=== PATIENT | female | born 1965 | race Caucasian/White ===

== ENCOUNTER 2016-10-16 11:55 | Emergency (ER) | payer OTHER ==
[2016-10-16] MEDS ORDERED: ASPIRIN PO ONE (12:20)
--- NOTE | 2016-10-16 12:26 | ED EKG INTERP ---
EKG Interpretation - EKG Time of EKG reading by physician:: 12:09 EKG Read and Signed by:: Louis Mejia EKG Interpretation (*Must complete 3 of following elements*): Abnormal Rate: 97 Rhythm: Normal Sinus Rhythm [place]: normal QRS: other (low voltage) Attestation - Scribe Verification/Attestation Scribe:: Timoteo South Acting as Scribe for:: Louis Mejia Scribe documention review:: This chart was documented by a scribe and accurately reflects the service the provider performed and the decisions made by the provider.
--- NOTE | 2016-10-16 12:33 | PROVIDER DOCUMENTATION ---
HPI-General Adult - General Chief Complaint: Chest Pain Stated Complaint: Chest Tightness Time Seen by Provider: 10/16/16 12:19 Source: patient Allergies/Adverse Reactions: Patient Allergies Allergy/AdvReac Type Severity Reaction Status Date / Time Sulfa (Sulfonamide Allergy Unknown Verified 10/16/16 12:00 Antibiotics) [Sulfa(Sulfonamide Antibiotics)] Home Medications: Albuterol Sulfate [Proair Hfa] 8.5 gm IH DIRECTED 12/26/13 Insulin Aspart [Novolog] 5 unit SQ DIRECTED 12/26/13 Pregabalin [Lyrica] 100 mg PO TID 07/24/14 Dexlansoprazole [Dexilant] 30 mg PO DAILY 03/10/15 Budesonide/Formoterol Inhaler [Symbicort 80/4.5 Microgm Inhaler] 1 puff INH DAILY 10/16/16 Duloxetine [Cymbalta] 30 mg PO DAILY 10/16/16 Estrogens, Conjugated [Premarin] 0.625 mg PO DAILY 10/16/16 - History of Present Illness -Gen Adult Nature of Presenting Problems: Pt. is 51 yof that presents with c/o CP with SOB and dizziness after she was in rehab today for a shoulder surgery. Pt. reports her chest began to tighten and she denies any N/V or diaphoresis. Pt. reports no other symptoms at this time. Location of Pain/Injury: reports: chest. denies: head, face, mouth, neck, upper extremity, hand(s), abdomen, back, pelvis, genitalia, lower extremity, feet, upper body, lower body, generalized Pain Radiation: reports: no radiation Quality of Pain: reports: tightness. denies: aching, burning, cramping, dull, fullness, indigestion, pressure, sharp, stabbing, tearing, throbbing Severity: reports: moderate. denies: mild, severe Onset/Duration: reports: abrupt, this morning Timing: reports: still present. denies: improving, gone now, resolved prior to arrival, intermittent, constant, changing over time, getting worse Context/Activities at Onset: reports: light activity, recent physical stress. denies: recent emotional stress, recent trauma history, possible bad food, cold exposure, out of country travel Modifying Factors: improves with: nothing Associated Symptoms: reports: chest pain, dizziness, shortness of breath. denies: anxiety, arm pain, back/neck pain, constipation, cough, diaphoresis, diarrhea, EENT symptoms, fatigue, fever/chills, genitourinary problems, headaches, heartburn, joint pain, loss of appetite, malaise, muscle aches, sinus congestion/drainage, nausea, rash, seizure, sensory/motor loss, pain with inspiration, swelling/mass in abdomen, syncope, vomiting, weakness, trouble walking Similar Symptoms Previously?: No Recently seen or treated by another doctor?: No Review of Systems - Adult - REVIEW OF SYSTEMS - ADULT Constitutional: reports: see HPI. denies: chills, fever, [place]ique Eyes: reports: see HPI. denies: discharge, blurred vision, double vision, eye pain Ears, Nose, Mouth & Throat: reports: see HPI. denies: ear discharge, ear pain, nose pain, loose teeth, mouth/dental pain, throat swelling Cardiovascular: reports: see HPI, chest pain. denies: irregular heart rate, palpitations, syncope Respiratory: reports: see HPI, shortness of breath. denies: chronic cough, cough, dyspnea on exertion Gastrointestinal: reports: see HPI. denies: abdominal pain, diarrhea, nausea, vomiting Genitourinary: reports: see HPI. denies: dysuria, hematuria, hesitency, urgency Musculoskeletal: reports: see HPI. denies: bone pain, back pain, joint pain, muscle aches, neck pain Integumentary: reports: see HPI. denies: hives, itching, rash, skin thickening Neurological: reports: see HPI, dizziness/vertigo. denies: headache/migraines, numbness, seizure, tremors Psychiatric: reports: see HPI. denies: anxiety, depression, emotional problems , insomnia, panic attacks, suicidal thoughts Past History - Adult - PAST MEDICAL HISTORY-ADULT Review of Records: reports: Old Records Reviewed, Nursing Assessment Review, Medications Reviewed, Social history reviewed & non-contributory. Respiratory: reports: COPD Musculoskeletal: reports: chronic pain, other (fibromyalgia) Endocrine/Immune: reports: Diabetes - PRIOR SURGERIES/PROCEDURES Surgical/Procedure History: reports: reviewed, not pertinent, orthopedic ( extremity) - IMMUNIZATION STATUS Childhood Immunizations: UTD Flu Vaccine: See Nurse Assessment Physical Exam-General - PHYSICAL EXAM-ADULT Initial Vital Signs Reviewed: Yes - CONSTITUTIONAL General Appearance: alert, mild distress, anxious. negative: lethargic, slow to respond, obtunded, combative - EYES Eyes: PERRL/EOMI, pink conjunctivae. negative: conjuctival exudate, photophobia , subconjunctival hemorrhage - HEAD, EARS, NOSE, MOUTH & THROAT HENMT: normocephalic/atraumatic, moist mucous membranes. negative: angioedema, frontal tenderness, maxillary tenderness - NECK Neck: non-tender, full range of motion, supple, normal inspection. negative: lymphadenopathy, trachial deviation, thyromegaly - RESPIRATORY Respiratory: lungs clear, normal breath sounds. negative: crackles, rales, rhonchi, stridor, wheezing - CARDIOVASCULAR Cardiovascular: normal peripheral pulses, regular rate, rhythm, no JVD, no murmur. negative: extra beats, friction rub, irregularly irregular - CHEST (BREASTS) Chest/Breast: deferred - GASTROINTESTINAL (ABDOMEN) Abdominal Exam: normal bowel sounds, non tender, soft. negative: distended, guarding, rigid, rebound, tenderness, hernia, mass - GENITOURINARY Female Genitalia/Pelvic Exam: deferred Rectal Exam: deferred Hemoccult Exam: deferred - LYMPHATIC Lymphatic: no adenopathy. negative: axilla node tender, cervical node tenderness - MUSCULOSKELETAL Back Exam: normal inspection, no CVA tenderness, no vertebral tenderness. negative: ecchymosis, muscle spasm, vertebral tenderness Extremity: normal range of motion, non-tender, normal gait, normal inspection. negative: deformity, erythema, inflammation, swelling, tenderness Peripheral Pulses: radial (R): 2+, radial (L): 2+ - SKIN Integumentary: normal color, normal turgor, warm/dry. negative: cyanosis, diaphoresis, ecchymosis, erythema, jaundice, mottled, pallor, petechiae, purpura , rash, swelling, tenderness - NEUROLOGIC Neurologic: grossly normal, no motor/sensory deficits. negative: aphasia, facial droop, focal weakness, motor weakness, sensory deficit - PSYCHIATRIC Psych/Mental Status: normal mood/affect, normal thought content, normal thought process, oriented x 3, anxious. negative: paranoid, tearful Progress - PLAN OF CARE/RESULTS Progress/Plan/Lab Results: Discussed results and plan of care with patient. Patient agrees with plan and verbalizes understanding. Vital Signs Temp Pulse Pulse Pulse Pulse Resp BP 10/16/16 14:58 99 H 93 H 103 H 10/16/16 14:28 98.0 F 98 H 14 110/49 10/16/16 13:15 108 H 102 H 88 10/16/16 11:55 106 H 18 114/57 BP BP BP Pulse Ox 10/16/16 14:58 124/63 134/60 147/99 10/16/16 14:28 100 10/16/16 13:15 117/59 91/55 119/63 10/16/16 11:55 98 Sulfa (Sulfonamide Antibiotics) [Sulfa(Sulfonamide Antibiotics)] Allergy ( Verified 10/16/16 12:00) Unknown Albuterol Sulfate [Proair Hfa] 8.5 gm IH DIRECTED 12/26/13 Insulin Aspart [Novolog] 5 unit SQ DIRECTED 12/26/13 Pregabalin [Lyrica] 100 mg PO TID 07/24/14 Dexlansoprazole [Dexilant] 30 mg PO DAILY 03/10/15 Meloxicam [Mobic] 15 mg PO DAILY #30 tablet 03/11/15 Budesonide/Formoterol Inhaler [Symbicort 80/4.5 Microgm Inhaler] 1 puff INH DAILY 10/16/16 Duloxetine [Cymbalta] 30 mg PO DAILY 10/16/16 Estrogens, Conjugated [Premarin] 0.625 mg PO DAILY 10/16/16 Laboratory 10/16/16 10/16/16 10/16/16 13:05 13:05 13:05 WBC 4.94 RBC 4.41 Hgb 12.2 Hct 35.8 L MCV 81.2 MCH 27.7 MCHC 34.1 RDW Std Deviation 11.8 Plt Count 283 MPV 9.1 Immature Gran % (Auto) 0.2 Neut % (Auto) 48.6 Lymph % (Auto) 35.4 [place] % (Auto) 7.1 Eos % (Auto) 7.9 Baso % (Auto) 0.8 Immature Gran # (Auto) 0.01 Neut # (Auto) 2.40 Lymph # (Auto) 1.75 [place] # (Auto) 0.35 Eos # (Auto) 0.39 Baso # (Auto) 0.04 PT 12.7 INR 0.92 APTT (Factor Assay) 30.5 Sodium Potassium Chloride Carbon Dioxide Anion Gap BUN Creatinine Estimated GFR/1.73 m2 BUN/Creatinine Ratio Glucose POC Glucose Calculated Osmolality Calcium Total Bilirubin AST ALT Alkaline Phosphatase Creatine Kinase Troponin T < 0.010 Total Protein Albumin Globulin Albumin/Globulin Ratio 10/16/16 10/16/16 13:05 12:30 WBC RBC Hgb Hct MCV MCH MCHC RDW Std Deviation Plt Count MPV Immature Gran % (Auto) Neut % (Auto) Lymph % (Auto) [place] % (Auto) Eos % (Auto) Baso % (Auto) Immature Gran # (Auto) Neut # (Auto) Lymph # (Auto) [place] # (Auto) Eos # (Auto) Baso # (Auto) PT INR APTT (Factor Assay) Sodium 133 L Potassium 4.1 Chloride 97 L Carbon Dioxide 26 Anion Gap 10 BUN 25 H Creatinine 0.8 Estimated GFR/1.73 m2 > 60 BUN/Creatinine Ratio 31 Glucose 212 H POC Glucose 196 H Calculated Osmolality 277 Calcium 9.6 Total Bilirubin 0.30 AST 22 ALT 18 Alkaline Phosphatase 155 H Creatine Kinase 52 Troponin T Total Protein 6.6 Albumin 4.3 Globulin 2.0 Albumin/Globulin Ratio 2.0 Orders Category Date Time Status FSBS [Finger Stick Blood Sugar (ED)] DIRECTED Care 10/16/16 12:20 Active Orthostatic Vital Signs NOW Care 10/16/16 12:20 Active Orthostatic Vital Signs NOW Care 10/16/16 14:56 Active Saline Loc NOW Care 10/16/16 12:19 Active CHEST-2 VIEWS [RAD] ONCE Exams 10/16/16 12:20 Draft CBC WITH ELECTRONIC DIFF [HEME] Stat Lab 10/16/16 13:05 Completed CK PROFILE [SP CHEM] Stat Lab 10/16/16 13:05 Completed COMPREHENSIVE METABOLIC PANEL [CHEM] Stat Lab 10/16/16 13:05 Com[address]IME WITH INR PL [COAG] Routine Lab 10/16/16 13:[address] [COAG] Routine Lab 10/16/16 13:05 Completed TROPONIN T Stat Lab 10/16/16 13:05 Completed 0.9% Sodium Chloride Inj [Ns] 1,000 ml Med 10/16/16 13:18 Discontinued .ROUTE As Directed 0.9% Sodium Chloride Inj [Ns] 1,000 ml Med 10/16/16 13:50 Discontinued IV 1,000 mls/hr Aspirin Med 10/16/16 12:20 Discontinued 325 mg PO NOW ONE Meclizine [Antivert] Med 10/16/16 15:04 Once 25 mg PO NOW ONE EKG [EKG] Stat Ther 10/16/16 12:19 Draft Laboratory Tests 10/16/16 10/16/16 10/16/16 12:30 13:05 13:05 WBC RBC Hgb Hct MCV MCH MCHC RDW Std Deviation Plt Count MPV Immature Gran % (Auto) Neut % (Auto) Lymph % (Auto) [place] % (Auto) Eos % (Auto) Baso % (Auto) Immature Gran # (Auto) Neut # (Auto) Lymph # (Auto) [place] # (Auto) Eos # (Auto) Baso # (Auto) PT INR APTT (Factor Assay) Sodium 133 L Potassium 4.1 Chloride 97 L Carbon Dioxide 26 Anion Gap 10 BUN 25 H Creatinine 0.8 Estimated GFR/1.73 m2 > 60 BUN/Creatinine Ratio 31 Glucose 212 H POC Glucose 196 H Calculated Osmolality 277 Calcium 9.6 Total Bilirubin 0.30 AST 22 ALT 18 Alkaline Phosphatase 155 H Creatine Kinase 52 Troponin T < 0.010 Total Protein 6.6 Albumin 4.3 Globulin 2.0 Albumin/Globulin Ratio 2.0 10/16/16 10/16/16 13:05 13:05 WBC 4.94 RBC 4.41 Hgb 12.2 Hct 35.8 L MCV 81.2 MCH 27.7 MCHC 34.1 RDW Std Deviation 11.8 Plt Count 283 MPV 9.1 Immature Gran % (Auto) 0.2 Neut % (Auto) 48.6 Lymph % (Auto) 35.4 [place] % (Auto) 7.1 Eos % (Auto) 7.9 Baso % (Auto) 0.8 Immature Gran # (Auto) 0.01 Neut # (Auto) 2.40 Lymph # (Auto) 1.75 [place] # (Auto) 0.35 Eos # (Auto) 0.39 Baso # (Auto) 0.04 PT 12.7 INR 0.92 APTT (Factor Assay) 30.5 Sodium Potassium Chloride Carbon Dioxide Anion Gap BUN Creatinine Estimated GFR/1.73 m2 BUN/Creatinine Ratio Glucose POC Glucose Calculated Osmolality Calcium Total Bilirubin AST ALT Alkaline Phosphatase Creatine Kinase Troponin T Total Protein Albumin Globulin Albumin/Globulin Ratio Departure - Departure Time of Disposition Order: 15:05 DIAGNOSIS: Dehydration, Vertigo Disposition: HOME 01 Certified Medical Emergency: Emergent Condition: Stable Additional Instructions: Follow up with primary care physician Drink plenty of water Take medications as directed Return to ED for any concerns or worsening of symptoms ED Follow Up Instructions: You have been treated by a care provider in the Emergency Department. These instructions are being provided to you so you can have an understanding of how to care for yourself upon discharge. Upon discharge from the Emergency Department, you are responsible for making arrangements for follow-up care by a physician of your choice. Take all prescribed medications as directed. Return to the Emergency Department immediately for any new or worsening symptoms. You may call the Physician Referral phone number at [phone] to obtain a list of Physicians who are taking new patients. Prescriptions: Meclizine HCl [Antivert] 25 mg PO BID #20 tablet Referrals: Caren Quinonez CRNP [Primary Care Provider] - Attestation - Physician/ Mid-level Attestation Patient care was provided by Mid-level provider (PLANT MAINTENANCE ENGINEER/PA):: Yes Mid-level provider:: Miguel A Hope Mid-level documentation review:: The Mid-level provider documentation, treatment plan and medical decision making was reviewed by the physician who agrees with all treatment and medical decision making by the P.
--- NOTE | 2016-10-16 12:36 | EKG Report ---
Test Performed on : 10/16/2016 11:54:58 AM Test Reason : CP Blood Pressure : / mmHG Vent. Rate : 097 BPM Atrial Rate : 097 BPM P-R Int : 138 ms QRS Dur : 084 ms QT Int : 338 ms P-R-T Axes : 070 010 033 degrees QTc Int : 429 ms Normal sinus rhythm. Low voltage QRS Septal infarct , age undetermined Abnormal ECG When compared with ECG of 10-MAR-2015 21:27, No significant change was found Unconfirmed Result
--- NOTE | 2016-10-16 13:04 | Diag Imaging Result Document ---
PROCEDURE NAME: CHEST-2 VIEWS - 10/16/2016 CHEST X-RAY 2 VIEWS: COMPARISON: 03/11/2015. FINDINGS: There is a stable 1.3 cm left upper lobe pulmonary nodule that appears noncalcified. This is actually over 2 years old and is considered benign. No focal infiltrates, pneumothorax, or pleural effusion. Heart size and pulmonary vascularity are normal. IMPRESSION: No acute disease or change from prior.
[2016-10-16 13:16] LABS: MANUAL DIFF NEEDED? NO
[2016-10-16 13:18] LABS: BASO% 0.8 % (0.0-0.8); EOS# 0.39 X1000 (0.0-0.7); EOS% 7.9 % (0.0-10.0); HEMATOCRIT 35.8 % (37.0-47.0); HEMOGLOBIN 12.2 g/dL (12.0-16.0); IMM GRAN# 0.01 X1000 (0.0-0.04); IMM GRAN% 0.2 % (0.0-0.5); LYMPH# 1.75 X1000 (1.2-3.4); LYMPH% 35.4 % (20.5-51.1); MCH 27.7 PG (27-31); MCHC 34.1 g/dL (33-37); MCV 81.2 FL (81-99); MONO# 0.35 X1000 (0.11-0.59); MONO% 7.1 % (1.7-9.3); MPV 9.1 FL (7.4-10.4); NEUT% 48.6 % (42.2-75.2); PLT 283 X1000 (130-400); RBC 4.41 XMIL (4.2-5.4)
[2016-10-16] MEDS ORDERED: NS 1,000 ML ONE (13:18)
[2016-10-16 13:35] LABS: INR 0.92 (0.86-1.15); PROTIME 12.7 Seconds (12.1-15.5)
[2016-10-16 13:36] LABS: PTT PL 30.5 Seconds (22.6-43.9)
[2016-10-16 13:39] LABS: AGAP 10; ALBUMIN 4.3 g/dL (3.5-5.0); ALKALINE PHOSPHATASE 155 U/L (32-104); BUN 25 mg/dL (8-22); CALCIUM 9.6 mg/dL (8.8-10.2); CHLORIDE 97 mmol/L (98-107); CK PROFILE 52 U/L (24-173); COSMO 277; GOT 22 U/L (10-30); GPT 18 U/L (10-36); POTASSIUM 4.1 mmol/L (3.5-5.1); SODIUM 133 mmol/L (136-145); TCO2 26 mmol/L (25-35); TOTAL PROTEIN 6.6 g/dL (6.3-8.3)
[2016-10-16] MEDS ORDERED: NS 1,000 ML IV ONE (13:50)
[2016-10-16] MEDS ORDERED: ANTIVERT PO ONE (15:04)
[2016-10-16 16:02] VITALS: BP 139/84
== END 2016-10-16 16:00 | disposition home or self-care (01) ==
LOC: P.ED 11:55
DX: R42 Dizziness and giddiness (principal); E86.0 Dehydration; R07.89 Other chest pain; R06.02 Shortness of breath; J44.9 Chronic obstructive pulmonary disease, unspecified; M79.7 Fibromyalgia; G89.29 Other chronic pain; E11.9 Type 2 diabetes mellitus without complications; Z79.899 Other long term (current) drug therapy; F41.9 Anxiety disorder, unspecified; Z79.1 Long term (current) use of non-steroidal anti-inflammatories (NSAID); Z79.4 Long term (current) use of insulin; Z79.51 Long term (current) use of inhaled steroids
CPT/HCPCS: 36415; 71020; 80053; 82550; 82948; 84484; 85025; 85610; 85730; 93005; 96360; 96361; J7030